=== PATIENT | male | born 1990 | race Caucasian/White ===

== ENCOUNTER 2021-10-13 13:28 | Emergency (ER) | payer SELFPAY ==
[~2021-10-13] VITALS: Ht 170.2 cm; Wt 72.0 kg
[2021-10-13 13:39] VITALS: BP 129/87
== END 2021-10-13 18:14 | disposition home or self-care (01) ==
LOC: ER 13:28
DX: Z20.89 Contact with and (suspected) exposure to other communicable diseases (principal); Z91.041 Radiographic dye allergy status
CPT/HCPCS: 99281